=== PATIENT | male | born 1975 | race Caucasian/White ===

== ENCOUNTER 2022-01-27 12:19 | Emergency (ER) | payer SELFPAY ==
[~2022-01-27] VITALS: Ht 182.9 cm; Wt 77.1 kg
[2022-01-27 12:22] VITALS: BP 141/94
--- NOTE | 2022-01-27 12:30 | NUR ---
46 y/o male bib self from home, c/o left hand pain post injury. pt states he was using a table saw at home and cut his fingers. area appears to be bleeding from 3rd, 4th and 5th digit. muscle tissues visible, pt profusely bleeding with visible deformities. a&ox4, [place] speaking, ambulates with even and steady gait. denies cough, fever, chills, sob, cough. pmh: denies nka
[2022-01-27] MEDS ORDERED: HYDROcodone/APAP 5/325 MG 1 TAB TAB PO ONE (12:40)
--- NOTE | 2022-01-27 13:44 | NUR ---
PER ER MID LEVEL, WET 4X4 DRESSINGS APPLIED TO PT L HAND AND WRAPPED WITH ROLLER GAUZE X 1. + CMS
[2022-01-27] MEDS ORDERED: ceFAZolin 1,000 MG VIAL ONE (14:10)
--- NOTE | 2022-01-27 14:30 | NUR ---
pt given applesauce, orange juice and crackers at this time.
[2022-01-27] MEDS ORDERED: CEPH-588 PO (15:15)
[2022-01-27] MEDS ORDERED: BACI1PAC6 TP (15:15)
[2022-01-27] MEDS ORDERED: ACET-8386 PO (15:15)
[2022-01-27] MEDS ORDERED: BACITRACIN OINT 500 UNITS/GM PKT TP ONE ×2 (15:18→15:20)
--- NOTE | 2022-01-27 15:40 | NUR ---
PT L HAND DIGITS 2/3/4 WRAPPED WITH NON ADHERENT. RADIAL GUTTER SPLINT APPLIED TO L 2/3 DIGITS AND WRAPPED WITH ROLL GAUZE X 2. + CMS AFTER APPLICATION
[2022-01-27 15:43] VITALS: BP 136/90
--- NOTE | 2022-01-27 15:43 | NUR ---
Patient discharged with v/s stable. Written and verbal after care instructions given and explained. Patient alert, oriented and verbalized understanding of instructions. Ambulatory with steady gait. All questions addressed prior to discharge. ID band removed. Patient advised to follow up with PMD. Rx of HYDROCODONE BACITRACIN KEFLEX given.
--- NOTE | 2022-01-27 15:44 | NUR ---
Chart checked and completed. The patient's care was reviewed and supervised by Aracelis Lewis RN.
== END 2022-01-27 15:43 | disposition home or self-care (01) ==
LOC: MED 12:19
DX: S61.213A Laceration without foreign body of left middle finger without damage to nail, initial encounter (principal); W45.8XXA Other foreign body or object entering through skin, initial encounter; Y93.89 Activity, other specified; Y92.89 Other specified places as the place of occurrence of the external cause; Y99.8 Other external cause status
CPT/HCPCS: 29125; 73130; 90471; 90715; 96374; 99283; J0690